=== PATIENT | female | born 1985 | race Caucasian/White ===

== ENCOUNTER 2018-06-12 07:32 | Emergency (ER) | payer OTHER ==
[~2018-06-12] VITALS: Ht 149.9 cm; Wt 72.3 kg
[2018-06-12] MEDS ORDERED: IBUPROFEN 800 MG TABLET PO ONE (08:15)
[2018-06-12] MEDS ORDERED: PERTUSS(ACELL),DIPH,TET VAC/PF 0.5 ML VIAL IM ONE (08:15)
[2018-06-12] MEDS ORDERED: LIDOCAINE 2% 5 ML JELLY TP ONE (08:15)
[2018-06-12 11:13] VITALS: BP 127/68
== END 2018-06-12 11:22 | disposition home or self-care (01) ==
LOC: EMS 07:34
DX: S01.21XA Laceration without foreign body of nose, initial encounter (principal); W20.8XXA Other cause of strike by thrown, projected or falling object, initial encounter; Y93.89 Activity, other specified; Y92.098 Other place in other non-institutional residence as the place of occurrence of the external cause; Y99.8 Other external cause status
CPT/HCPCS: 70160; 90471; 90715